=== PATIENT | female | born 1970 | race Caucasian/White ===

== ENCOUNTER 2018-05-17 03:13 | Emergency (ER) | payer MEDICARE, OTHER ==
[~2018-05-17] VITALS: Ht 172.7 cm; Wt 123.4 kg
[~2018-05-17 03:13] MED LIST: BACTROBAN15 G1; HUMALOG100 UNIT/1; LANTUS 3ML100 UNITS/ SQ; OMEPRAZOLE40 MG PO; TYLENOL WITH C1 EACH PO
[2018-05-17] MEDS ORDERED: ONDANSETRON HCL INJ 2 MG/ML VIAL IV STA (03:35)
[2018-05-17] MEDS ORDERED: MIDODRINE HCL 5 MG TABLET PO ONE (03:42)
[2018-05-17] MEDS ORDERED: MIDODRINE 2.5 MG TAB PO STA (03:43)
[2018-05-17] MEDS ORDERED: SODIUM CHLORIDE 0.9% 250ML 250 ML IV ONE (03:45)
[2018-05-17 03:58] LABS: BASOPHILS % 0.4 % (0.0-1.0); EOSINOPHILS # (AUTO) 0.1 (0.0-0.4); HEMATOCRIT 31.7 % (34.2-44.1); HEMOGLOBIN 9.7 g/dL (12.0-16.0); LYMPHOCYTES # (AUTO) 1.5 (1.0-3.2); LYMPHOCYTES % 14.3 % (18.0-39.1); MEAN CORPUSCULAR HEMOGLOBIN 33.9 pg (28-32); MEAN CORPUSCULAR HGB CONC 30.6 g/dL (31-35); MEAN CORPUSCULAR VOLUME 110.8 fL (81-99); MONOCYTES % 9.5 % (4.4-11.3); NEUTROPHILS # (AUTO) 7.8 (2.1-6.9); NEUTROPHILS % 74.2 % (38.7-80.0); PLATELET COUNT 307 x10e3/uL (140-360); RED BLOOD COUNT 2.86 x10e6/uL (3.6-5.1); RED CELL DISTRIBUTION WIDTH 15.5 % (11.7-14.4)
[2018-05-17 04:17] LABS: ALBUMIN 2.7 g/dL (3.5-5.0); ALBUMIN/GLOBULIN RATIO 0.7 (0.8-2.0); ANION GAP 21.5 mmol/L (8-16); CALCIUM 8.8 mg/dL (8.4-10.2); CREATININE, SERUM 10.17 mg/dL (0.57-1.11); POTASSIUM 4.5 mmol/L (3.5-5.1)
[2018-05-17 04:23] LABS: CREATINE KINASE MB 0.4 ng/mL (0-5.0)
--- NOTE | 2018-05-17 05:17 | Diagnostic Imaging Report ---
EXAMINATION: CHEST SINGLE (PORTABLE) INDICATION: Fever. COMPARISON: None FINDINGS: TUBES and LINES: None. LUNGS: Lungs are not well inflated. Lungs are clear. There is no evidence of pneumonia or pulmonary edema. PLEURA: No pleural effusion or pneumothorax. HEART AND MEDIASTINUM: Cardiac size is mildly enlarged. BONES AND SOFT TISSUES: No acute osseous lesion. Soft tissues are unremarkable. UPPER ABDOMEN: No free air under the diaphragm. IMPRESSION: No acute thoracic abnormality. Signed by: Dr. Rashaun Miller M.D. on 05/17/2018 5:14 AM
[2018-05-17 05:21] VITALS: BP 95/54
[2018-05-17] MEDS ORDERED: AZITHROMYCIN250 MG PO (05:21)
[2018-05-17] MEDS ORDERED: MIDODRINE 2.5 MG TAB PO SCH (08:00)
== END 2018-05-17 05:52 | disposition home or self-care (01) ==
LOC: ER 03:13
DX: R50.9 Fever, unspecified (principal); J02.9 Acute pharyngitis, unspecified; N18.6 End stage renal disease; Z99.2 Dependence on renal dialysis
CPT/HCPCS: 36415; 71045; 80053; 82550; 82553; 83518; 83605; 84484; 85025; 87040; 87070; 87186; 93005 ×2; 99284; J2405; J7050